=== PATIENT | male | born 1945 | race Caucasian/White ===

== ENCOUNTER 2022-04-11 08:36 | Observation (INO) ==
[2022-04-11] MEDS ORDERED: ZOFRAN INJ 4 MG VIAL IVP ONE ×2 (09:21→15:14)
[2022-04-11] MEDS ORDERED: NS 500 ML IV 500 ML IV ONE ×2 (09:21→09:25)
--- NOTE | 2022-04-11 09:21 | DR.N/VMALE ---
HPI Time Seen Time Seen by Provider: 04/11/22 09:19 Primary Care Physician Primary Care Physician: NIKA LANIER Complaints Chief Complaint Doctors Comments: 76 y/o male presents with nausea and vomiting x 2 days. Unable to keep anything down. + frequent nausea, vomiting. Has a h/o chronic abdominal pain, > 1 year, no change. + weakness. Denies fever, chills, URI symptoms. Has been on a diuretic, urinates frequently. Chief Complaint:: PT REPORTS THAT SINCE FRIDAY HE HAS BEEN HAVING N/V AND UNABLE TO HOLD DOWN FOOD OR MEDS ,BR Self Treatment fo Chief Complaint: NONE COVID-19 Coronavirus risk:travel/contact w/high risk person: No Has patient experienced Coronavirus symptoms: No Reviewed Nurses Notes Reviewed: Yes Source History Provided: Patient Mode of Arrival Mode of Arrival: Wheelchair Timing Onset of Chief Complaint: 04/09/22 PMH PMH Past Medical History: Yes Past Medical History: Arthritis and Diabetes Past Surgical History: Yes Past Surgical History Comment: LAP BAND , 5-6 YEARS AGO, [employer] Family History History of Family Medical Conditions: Yes Family Medical History: Diabetes Mellitus, Cancer and Hypertension Social History Does patient currently use any type of tobacco product: No Have you used tobacco products in the last 12 months: No Type of Tobacco Use: None Does any household member use tobacco: No Alcohol Use: None Do you use any recreational Drugs:: No Lives With: Family Lives Where: Home Travel Risk Coronavirus risk:travel/contact w/high risk person: No Has patient experienced Coronavirus symptoms: No Infectious screening In the last 2 months have you had wt loss of >10#?: NO Have you had fever, night sweats or hemotysis?: No Have you traveled outside the country in the last 6 months?: No Isolation: Standard ROS Review of Systems Constitutional: Weakness Eyes: No Symptoms Reported ENTM: No Symptoms Reported Respiratoy: No Symptoms Reported Cardiovascular: No Symptoms Reported Gastrointestinal/Abdominal: Nausea and Vomiting Genitourinary: No Symptoms Reported Neurological: Weakness Musculoskeletal: No Symptoms Reported Integumentary: No Symptoms Reported Hematologic/Lymphatic: No Symptoms Reported Psychiatric: No Symptoms Reported All Other Systems: Reviewed and Negative PE Vital Signs Vitals: Temperature 96.4 F Pulse Rate 78 Respiratory Rate 20 Blood Pressure [Left Arm] 148/70 Blood Pressure 137/72 O2 Sat by Pulse Oximetry 97 General General Appearance: Alert and In No Apparent Distress Eyes Eye exam: PERRL and EOMI ENT ENT Exam: Normal Exam and Mucous Membranes Moist Neck Neck Exam: Normal Inspection and Full ROM Respiratory Respiratory Exam: Normal Lung Sounds Bilat; negative Accessory Muscle Use or Respiratory Distress Cardiovascular Cardiovascular Exam: Regular Rate, Normal Rhythm and Normal Heart Sounds Abdominal Exam Abdominal Exam: Normal Inspection, Normal Bowel Sounds and Soft; negative Tenderness, Guarding or Rebound Extremities Extremities Exam: Other (+ chronic stasis dermatitis changes of lower exts) Neurologic Neurological Exam: Alert, Oriented X3 and CN II-XII Intact; negative Motor Sensory Deficit Psychiatric Psychiatric Exam: Normal Affect Skin Skin Exam: Warm and Dry MDM Differential Diagnosis Differential Diagnosis: Considerations may Include:: Bowel Obstruction, Gastritis, Gastroenteritis and Pancreatitis COURSE Treatment Treatment: 76 y/o male with 2 days of frequent nausea, vomiting. W/u initiated. Given IV fluids, zofran. 1225 - pt hungry, no active vomiting. + RLQ tenderness now on exam. Will do plain CT to look at appendix, consider GB US if negative. 1511 - (lapse on charting time, computer was down). Pt vomited small amount of sprite. CT of the abd/pelvis with gallstones, no signs for cholecystitis. Appendix not visualized, but no signs of intestinal inflammation. Will recommend admission for further hydration, treatment of vomiting. Discussed with covering hospitalist, Dr Carpenter, accepts the admission. ROR Labs Reviewed Laboratory Results Reviewed?: Yes Result Diagrams: 04/11/22 09:37 04/11/22 09:37 Laboratory: WBC 15.2 X10^3/uL (3.6-10.0) H 04/11/22 09:37 RBC 4.59 X10^6/uL (4.7-6.0) L 04/11/22 09:37 Hgb 14.6 g/dL (13.5-18.0) 04/11/22 09:37 Hct 42.7 % (42.0-54.0) 04/11/22 09:37 MCV 93.0 fL (80.0-100.0) 04/11/22 09:37 MCH 31.8 pg (27.0-34.0) 04/11/22 09:37 MCHC 34.2 g/dL (33.0-35.0) 04/11/22 09:37 RDW 13.6 % (11.6-16.5) 04/11/22 09:37 Plt Count 237 X10^3/uL (150.0-450.0) 04/11/22 09:37 MPV 7.5 fL (7.4-11.0) 04/11/22 09:37 Neut % (Auto) 51.0 % (42.0-75.0) 04/11/22 09:37 Lymph % (Auto) 44.4 % (21.0-51.0) 04/11/22 09:37 [place] % (Auto) 3.3 % (0.0-13.0) 04/11/22 09:37 Eos % (Auto) 0.9 % (0.9-2.9) 04/11/22 09:37 Baso % (Auto) 0.4 % (0.2-1.0) 04/11/22 09:37 Neut # (Auto) 7.8 x10^3/uL (2.2-4.8) H 04/11/22 09:37 Lymph # (Auto) 6.8 X10^3/uL (1.3-2.9) H 04/11/22 09:37 [place] # (Auto) 0.5 x10^3/uL (0.3-0.8) 04/11/22 09:37 Eos # (Auto) 0.1 x10^3/uL (0.0-0.2) 04/11/22 09:37 Baso # (Auto) 0.1 X10^3/uL (0.0-0.1) 04/11/22 09:37 Absolute Nucleated RBC 0.1 /100WBC 04/11/22 09:37 Sodium 137 mmol/L (136-145) 04/11/22 09:37 Corrected Sodium 141 mmol/L (136-145) 04/11/22 09:37 Potassium 4.0 mmol/L (3.5-5.1) 04/11/22 09:37 Chloride 100 mmol/L (98-107) 04/11/22 09:37 Carbon Dioxide 26.7 mmol/L (21-32) 04/11/22 09:37 BUN 24 mg/dL (7-18) H 04/11/22 09:37 Creatinine 1.82 mg/dL (0.70-1.30) H 04/11/22 09:37 Est GFR (MDRD) Af Amer 47 (>60) L 04/11/22 09:37 Est GFR (MDRD) Non-Af 38 (>60) L 04/11/22 09:37 Glucose 250 mg/dL (65-99) H 04/11/22 09:37 Calcium 10.1 mg/dL (8.5-10.1) 04/11/22 09:37 Corrected Calcium 10.7 mg/dL (8.5-10.1) H 04/11/22 09:37 Total Bilirubin 0.80 mg/dL (0.2-1.0) 04/11/22 09:37 AST 25 Units/L (15-37) 04/11/22 09:37 ALT 17 Units/L (12-78) 04/11/22 09:37 Alkaline Phosphatase 106 Units/L (46-116) 04/11/22 09:37 Total Protein 7.8 g/dL (6.4-8.2) 04/11/22 09:37 Albumin 3.2 g/dL (3.4-5.0) L 04/11/22 09:37 Globulin 4.6 g/dL (2.5-4.5) H 04/11/22 09:37 Albumin/Globulin Ratio 0.7 Ratio (1.1-2.1) L 04/11/22 09:37 Lipase 35 Units/L (73-393) L 04/11/22 09:37 Specimen Type Clean catch urine 04/11/22 10:54 Urine Color Yellow (YELLOW) 04/11/22 10:54 Urine Appearance Clear (CLEAR) 04/11/22 10:54 Urine pH 6.0 (5.0 - 8.0) 04/11/22 10:54 Ur Specific [place] 1.020 (1.000-1.030) 04/11/22 10:54 Urine Protein 2+ (NEGATIVE) 04/11/22 10:54 Urine Glucose (UA) 3+ (NEGATIVE) 04/11/22 10:54 Urine Ketones 2+ (NEGATIVE) 04/11/22 10:54 Urine Blood 2+ (NEGATIVE) 04/11/22 10:54 Urine Nitrite Negative (NEGATIVE) 04/11/22 10:54 Urine Bilirubin Negative (NEGATIVE) 04/11/22 10:54 Urine Urobilinogen Normal (NORMAL) 04/11/22 10:54 Ur Leukocyte Esterase Negative (NEGATIVE) 04/11/22 10:54 Urine RBC 3-5 /HPF (0-3) A 04/11/22 10:54 Urine WBC None seen /HPF (0-5) 04/11/22 10:54 Ur Squamous Epith Cells Few /HPF (NEGATIVE) 04/11/22 10:54 Urine Bacteria Trace /HPF (NEGATIVE) 04/11/22 10:54 Hyaline Casts Rare /LPF (NEGATIVE) 04/11/22 10:54 Ur Culture Indicated? No/not indicated 04/11/22 10:54 SARS-CoV-2 (PCR) Negative (NEGATIVE) 04/11/22 15:15 WBC elevated at 15K. XRAY XRAY Interpreted by: Radiologist X-ray Results: CT abd/pelvis without signs of inflammation. Does have gallstones. Opioid Opioid Risk Tool Age ([place] box if 16-45): No History of Preadolescent Sexual Abuse: No Total: 0 Total Score Risk Category: Low Risk Copyright: Gerardo BERRY predicting aberrant behaviors Discharge Plan Diagnosis Discharge Problem: Vomiting Discharge Plan Patient Disposition: 01 HOME, SELF-CARE Condition: Stable Orders to Discharge Patient Discharge Orders: Discharge (Routine); Ordered 04/11/22 Ordered By: Wagner Lu Transfer (Routine); Ordered 04/11/22 Ordered By: Wagner Lu
[2022-04-11] MEDS ORDERED: ZOFRAN INJ 4 MG VIAL ONE ×2 (09:25→15:57)
[2022-04-11 10:01] LABS: ALBUMIN 3.2 g/dL (3.4-5.0); CALCIUM 10.1 mg/dL (8.5-10.1); CARBON DIOXIDE 26.7 mmol/L (21-32); COR CA(FOR HYPOALB) 10.7 mg/dL (8.5-10.1); CREATININE 1.82 mg/dL (0.70-1.30); TOTAL PROTEIN 7.8 g/dL (6.4-8.2)
[2022-04-11 10:10] LABS: BASOPHILS # (AUTO) 0.1 X10^3/uL (0.0-0.1); BASOPHILS % (AUTO) 0.4 % (0.2-1.0); EOSINOPHILS # (AUTO) 0.1 x10^3/uL (0.0-0.2); EOSINOPHILS % (AUTO) 0.9 % (0.9-2.9); HEMATOCRIT 42.7 % (42.0-54.0); HEMOGLOBIN 14.6 g/dL (13.5-18.0); LYMPHOCYTES # (AUTO) 6.8 X10^3/uL (1.3-2.9); LYMPHOCYTES % (AUTO) 44.4 % (21.0-51.0); MEAN CORPUSCULAR HEMOGLOBIN 31.8 pg (27.0-34.0); MEAN CORPUSCULAR HGB CONC 34.2 g/dL (33.0-35.0); MEAN PLATELET VOLUME 7.5 fL (7.4-11.0); MONOCYTES # (AUTO) 0.5 x10^3/uL (0.3-0.8); MONOCYTES % (AUTO) 3.3 % (0.0-13.0); NEUTROPHILS # (AUTO) 7.8 x10^3/uL (2.2-4.8); RED BLOOD COUNT 4.59 X10^6/uL (4.7-6.0); RED CELL DISTRIBUTION WIDTH 13.6 % (11.6-16.5); WHITE BLOOD COUNT 15.2 X10^3/uL (3.6-10.0)
[2022-04-11 11:29] LABS: BILIRUBIN,URINE NEGATIVE (NEGATIVE); BLOOD/HEMOGLOBIN,URINE 2+ (NEGATIVE); GLUCOSE, URINE 3+ (NEGATIVE); KETONES,URINE 2+ (NEGATIVE); LEUKOCYTE ESTERASE ,URINE NEGATIVE (NEGATIVE); NITRITES,URINE NEGATIVE (NEGATIVE); PROTEIN,URINE 2+ (NEGATIVE); UROBILINOGEN,URINE NORMAL (NORMAL)
[2022-04-11 11:44] LABS: APPEARANCE,URINE CLEAR (CLEAR); COLOR,URINE YELLOW (YELLOW)
[2022-04-11 11:50] LABS: BACTERIA,URINE TRACE /HPF (NEGATIVE); HYALINE CASTS, URINE RARE /LPF (NEGATIVE); SQUAMOUS EPITHELIAL CELL,UR FEW /HPF (NEGATIVE)
[2022-04-11] MEDS ORDERED: NS 500 ML IV 500 ML IV SCH (12:26)
[2022-04-11] MEDS ORDERED: NS 1,000 ML IV 1,000 ML ONE (12:29)
--- NOTE | 2022-04-11 14:09 | CT ---
HISTORYRight lower quadrant abdominal pain and vomitingSTUDYCT abdomen pelvis without contrastTechnique: Axial noncontrast images with coronal and sagittal reformats. Dose reduction procedures were used with mA/kv adjusted for body size. This examination is limited due to the lack of intravenous and oral contrast.[id number]/2022 the lung bases are clear. The heart is enlarged.FINDINGSThe liver, spleen, adrenal glands, and pancreas are within normal limits to the limitations of an unenhanced examination. There is a properly oriented gastric lap band present. There is a hiatal hernia present. Cholelithiasis is present. There is no evidence for cholecystitis. The kidneys are unobstructed and without stones. No ureteral calculi are identified. Calcific atherosclerotic changes present in a nondilated abdominal aorta. No intraperitoneal or retroperitoneal lymphadenopathy of significance is identified. The appendix is not identified. No secondary signs of appendicitis are present. There are no findings suggestive of enteritis, colitis, or diverticulitis. Examination of the pelvis demonstrated no evidence for pelvic masses, pelvic fluid, or pelvic lymphadenopathy. No bladder abnormality is identified. No lytic or blastic skeletal lesions of significance are identified.IMPRESSIONCholelithiasis without evidence for cholecystitisNo definite acute intra-abdominal or intrapelvic abnormality to the limitations of an examination performed without intravenous and without oral contrast.No evidence for obstructing renal or ureteral calculiAppendix not identified however there are no secondary signs of acute appendicitis present.Electronically signed by: LATOYA MCCALL (Apr 11, 2022 13:08:00)
[2022-04-11] MEDS ORDERED: PROTONIX INJ 40 MG VIAL ONE (15:57)
[2022-04-11] MEDS: PROTONIX INJ 40 MG VIAL IVP SCH (16:02)
[2022-04-11] MEDS ORDERED: ZOFRAN INJ 4 MG VIAL IVP PRN (16:51)
[2022-04-11] MEDS ORDERED: NS 1,000 ML IV 1,000 ML IV SCH (16:51)
[2022-04-11] MEDS: NovoLIN R (or HumuLIN R) SUBCUT PRN (17:50)
[2022-04-11] MEDS: PERCOCET TAB 5/325 MG PO PRN (17:50)
[2022-04-11] MEDS ORDERED: PHENERGAN INJ 25 MG IM PRN (18:05)
[2022-04-11] MEDS: TOPROL XL PO SCH (18:09)
[2022-04-11] MEDS: SYNTHROID 25 mcg TAB PO SCH (18:09)
[2022-04-11] MEDS: NS 1,000 ML IV 1,000 ML IV SCH ×2 (18:23→23:46)
[2022-04-11] MEDS: LIPITOR TAB 20 MG PO SCH (21:51)
[2022-04-11] MEDS: SNACK - Diabetic Appropriate PO SCH (21:54)
[2022-04-12] MEDS: NS 1,000 ML IV 1,000 ML IV SCH ×4 (04:16→18:00)
[2022-04-12] MEDS: PERCOCET TAB 5/325 MG PO PRN ×2 (05:18→18:42)
[2022-04-12 05:53] LABS: BASOPHILS # (AUTO) 0.1 X10^3/uL (0.0-0.1); BASOPHILS % (AUTO) 0.4 % (0.2-1.0); EOSINOPHILS # (AUTO) 0.3 x10^3/uL (0.0-0.2); HEMATOCRIT 37.7 % (42.0-54.0); HEMOGLOBIN 12.7 g/dL (13.5-18.0); LYMPHOCYTES # (AUTO) 5.8 X10^3/uL (1.3-2.9); LYMPHOCYTES % (AUTO) 45.7 % (21.0-51.0); MEAN CORPUSCULAR HGB CONC 33.8 g/dL (33.0-35.0); MEAN CORPUSCULAR VOLUME 91.8 fL (80.0-100.0); MEAN PLATELET VOLUME 7.3 fL (7.4-11.0); MONOCYTES # (AUTO) 0.5 x10^3/uL (0.3-0.8); MONOCYTES % (AUTO) 4.1 % (0.0-13.0); NEUTROPHILS # (AUTO) 6.1 x10^3/uL (2.2-4.8); NEUTROPHILS % (AUTO) 47.8 % (42.0-75.0); RED CELL DISTRIBUTION WIDTH 13.7 % (11.6-16.5); WHITE BLOOD COUNT 12.8 X10^3/uL (3.6-10.0)
[2022-04-12 06:06] LABS: ALANINE AMINOTRANSFERASE 11 Units/L (12-78); ALBUMIN 2.5 g/dL (3.4-5.0); ALKALINE PHOSPHATASE 86 Units/L (46-116); ASPARTATE AMINO TRANSFERASE 18 Units/L (15-37); BLOOD UREA NITROGEN 18 mg/dL (7-18); CALCIUM 8.8 mg/dL (8.5-10.1); CARBON DIOXIDE 27.2 mmol/L (21-32); CHLORIDE 105 mmol/L (98-107); COR NA(FOR HYPERGLY) 141 mmol/L (136-145); CREATININE 1.45 mg/dL (0.70-1.30); SODIUM 139 mmol/L (136-145); TOTAL PROTEIN 6.5 g/dL (6.4-8.2); eGFR NON BLACK RACES 50 (>60)
[2022-04-12] MEDS: SYNTHROID 25 mcg TAB PO SCH (08:20)
[2022-04-12] MEDS: TOPROL XL PO SCH (08:20)
[2022-04-12] MEDS: LASIX PO SCH (08:20)
[2022-04-12] MEDS: LYRICA CAP 75 mg PO SCH (08:21)
[2022-04-12] MEDS: FLOMAX PO SCH ×2 (08:21→08:30)
[2022-04-12] MEDS: PROSCAR PO SCH (08:21)
[2022-04-12] MEDS: PROTONIX INJ 40 MG VIAL IVP SCH (08:22)
[2022-04-12] MEDS ORDERED: COLACE CAP 100 MG PO STA (09:37)
[2022-04-12] MEDS ORDERED: CITROMA PO PRN (09:37)
[2022-04-12] MEDS: PATIENT'S HOME MEDICATION (Trospium 20 mg Tablet) PO SCH (09:49)
[2022-04-12 10:19] VITALS: BMI 49.7
[2022-04-12] MEDS: LOVENOX INJ 40 MG SYR SC SCH (10:35)
[2022-04-12] MEDS: LINZESS PO SCH (10:36)
[2022-04-12] MEDS: NovoLIN R (or HumuLIN R) SUBCUT PRN ×3 (11:48→21:06)
[2022-04-12] MEDS: SNACK - Diabetic Appropriate PO SCH (20:00)
[2022-04-12] MEDS: LIPITOR TAB 20 MG PO SCH (21:04)
[2022-04-13] MEDS: NS 1,000 ML IV 1,000 ML IV SCH (03:03)
[2022-04-13] MEDS: PERCOCET TAB 5/325 MG PO PRN (05:04)
[2022-04-13 06:12] LABS: BASOPHILS # (AUTO) 0.1 X10^3/uL (0.0-0.1); BASOPHILS % (AUTO) 0.6 % (0.2-1.0); EOSINOPHILS # (AUTO) 0.3 x10^3/uL (0.0-0.2); EOSINOPHILS % (AUTO) 2.4 % (0.9-2.9); HEMATOCRIT 35.7 % (42.0-54.0); HEMOGLOBIN 12.3 g/dL (13.5-18.0); LYMPHOCYTES # (AUTO) 6.4 X10^3/uL (1.3-2.9); LYMPHOCYTES % (AUTO) 45.9 % (21.0-51.0); MEAN CORPUSCULAR HEMOGLOBIN 31.8 pg (27.0-34.0); MEAN CORPUSCULAR HGB CONC 34.6 g/dL (33.0-35.0); MEAN PLATELET VOLUME 8.5 fL (7.4-11.0); MONOCYTES # (AUTO) 0.5 x10^3/uL (0.3-0.8); MONOCYTES % (AUTO) 3.8 % (0.0-13.0); NEUTROPHILS # (AUTO) 6.6 x10^3/uL (2.2-4.8); NEUTROPHILS % (AUTO) 47.3 % (42.0-75.0); RED BLOOD COUNT 3.88 X10^6/uL (4.7-6.0); RED CELL DISTRIBUTION WIDTH 13.7 % (11.6-16.5); WHITE BLOOD COUNT 13.9 X10^3/uL (3.6-10.0)
[2022-04-13 06:19] LABS: ALBUMIN 2.4 g/dL (3.4-5.0); CALCIUM 8.3 mg/dL (8.5-10.1); CARBON DIOXIDE 30.3 mmol/L (21-32); COR CA(FOR HYPOALB) 9.6 mg/dL (8.5-10.1); CREATININE 1.54 mg/dL (0.70-1.30); TOTAL PROTEIN 6.1 g/dL (6.4-8.2)
[2022-04-13] MEDS: NovoLIN R (or HumuLIN R) SUBCUT PRN ×2 (06:59→11:50)
[2022-04-13 07:02] LABS: PLATELET MORPHOLOGY COMMENT NORMAL (NORMAL)
[2022-04-13] MEDS: FLOMAX PO SCH (08:14)
[2022-04-13] MEDS: LASIX PO SCH (08:15)
[2022-04-13] MEDS: LOVENOX INJ 40 MG SYR SC SCH (08:15)
[2022-04-13] MEDS: LINZESS PO SCH (08:15)
[2022-04-13] MEDS: TOPROL XL PO SCH (08:16)
[2022-04-13] MEDS: PROTONIX INJ 40 MG VIAL IVP SCH (08:16)
[2022-04-13] MEDS: SYNTHROID 25 mcg TAB PO SCH (08:16)
[2022-04-13] MEDS: PROSCAR PO SCH (08:16)
[2022-04-13] MEDS: LYRICA CAP 75 mg PO SCH (08:16)
[2022-04-13] MEDS: PATIENT'S HOME MEDICATION (Trospium 20 mg Tablet) PO SCH (08:17)
[2022-04-13] MEDS ORDERED: FIORICET TAB PO PRN (09:21)
[2022-04-13 09:26] VITALS: BP 130/59
== END 2022-04-13 12:30 | disposition home or self-care (01) ==
LOC: MED/SURG 08:36 → ER 08:36 → MED/SURG 16:39
PROVIDERS: ADMIT Obstetrics & Gynecology Obstetrics; ATTEND Obstetrics & Gynecology Obstetrics
DX: E11.65 Type 2 diabetes mellitus with hyperglycemia; I10 Essential (primary) hypertension; K56.41 Fecal impaction; R51.9 Headache, unspecified; R26.89 Other abnormalities of gait and mobility; K80.80 Other cholelithiasis without obstruction; R11.2 Nausea with vomiting, unspecified; E03.8 Other specified hypothyroidism; Z20.822 Contact with and (suspected) exposure to COVID-19; E86.0 Dehydration